=== PATIENT | female | born 2000 ===

== ENCOUNTER 2025-03-02 00:05 | Emergency (ER) | payer BC, SELFPAY ==
[2025-03-02 00:06] VITALS: BP 122/67; PULSE 106; RESP 16; TEMP 36.8; O2SAT 97; BMI 27.1
--- OUTSIDE RECORDS SUMMARY | 2025-03-02 00:45 | XMS_ITS | Patient Health Record ---
Author Organization [facility] Address [address] [place], [place] [id number] Care Team Providers Care Construction Safety Manager Name Role Phone LABORATORIO, [facility] Primary C are Provider [phone] Reason For Referral No Information Social History Sex Assigned At : Social History Observation Description Sex Assigned At Female Social History DAST: Social Info Question Answer Notes Cuestionario: Villanueva usado drogas el ano pasado? No 1 -Villanueva usado medicamentos dis tintos de los necesarios por motivos medicos? No 2 -Abusa de mas de rosaura droga a la vez? No 3 -No puede dejar de usar drogas cuando quiere? No 4 -[place]an[place]va experimentado perdida temporal de la memoria o escenas retrospectivas ena resultado del uso de drogas? No 5 -En ocasiones se siente ma l o culpable por loza uso de drogas? No 6 -Se queja alguna vez loza co nyuge (o padres) por loza implicacion con las drogas? No 7 -[place] descuidado a loza jaswinder debido a loza uso de drogas? No 8 -[place]an[place] participado en activid ades ilegales a fin de obtener drogas? No 9 -Villan[place]va experimentado alguna v ez sintomas de abstinencia(sentirse enfermo)cuando villanueva dejado de consumir drogas? No 10-Villanueva tenido problemas medic os ena resultado de loza uso de drogas(por ejemplo, perdida de memoria, hepatitis, convulsiones, hemorragias)? No Total de yes: 0 Score: Zone of Use: Score: 0 Zone: 1 - Healthy Alguna vez se villanueva inyectado drogas? Nunca Villanueva estado alguna vez en trat amiento por abuso de sustancias? Nunca Accion: None Sexual History: Social Info Question Answer Notes Details of Sexual History Are you sexually active? No How many sexual partners have you had? 1 Drugs/Alcohol: Social Info Question Answer Notes Drugs Have you used drugs other than those for medical reasons in the past 12 months? No Caffeine Intake: 1-2 cups per day Problems Problem Type SNOMED Code ICD Code Onset Dates Problem Status W/U Status Risk Notes Problem Absence of menstruation (52531635) Absence of menstruation (N91.2) Active confirmed Problem Amenorrhea (79213081) Absence of menses due to use of contraceptive (N91.2) Active confirmed Encounters Encounter Location Date Provider Diagnosis [facility] [place] [address] [employer], [place] [id number] 06/04/2024 [facility] Absence of menses due to use of contraceptive N91.2 [facility] [place] [address] [employer] [place], [place] [id number] 11/24/2024 [facility] Absence of menstruation N91.2 [facility] [place] [address] [facility] [place] [id number] 12/01/2024 [facility] Encounter for supervision of normal in multigravida in first trimester Z34.81 Assessments Encounter Date Diagnosis (ICD Code) Assessment Notes Treatment Notes Treatment Clinical Notes Section Notes 06/04/2024 Absence of menses due to use of contraceptive (ICD-10 - N91.2) 11/24/2024 Absence of menstruation (ICD-10 - N91.2) 12/01/2024 Encounter for supervision of normal in multigravida in first trimester (ICD-10 - Z34.81) Plan Of Treatment Pending Test Test Name Order Date CHLAMYDIA BY, PCR 12/01/2024 BMP 12/01/2024 URINALYSIS, AUTO W/SCOPE 12/01/2024 TSH THYROID STIM HORMONE 12/01/2024 TEST HCG QUALI 08/14/2022 TEST HCG QUALI 06/04/2024 TEST HCG QUALI 11/24/2024 CBC AUTO W/AUTO DIFF WBC 12/01/2024 VDRL QUALITATIVE 12/01/2024 HEPATITIS C Antibody (SERUM) (6) 025 BLOOD TYPE + BLOOD GROUP 12/01/2024 CULTURE URINE W/CC/SENS 12/01/2024 HEPATITIS B SURFACE ANTIBODY (HBsAB) (4) 12/01/2024 HEPATITIS B SURFACE Antigen (HBsAg) (5) 12/01/2024 MARLEY TEST INDIRECT QUAL 12/01/2024 HEPATITIS A Antibody (HAAb) TOT (2) 11/05 HEPATITIS A Antibody (HAAb) IgM Antibody (1) 12/01/2024 HEPATITIS B CORE ANTB HBCAB IGG (3) 11/05 VARICELLA-ZOSTER IGG 12/01/2024 SICKLE CELL TEST 12/01/2024 NEISSERIA GONORRHOEAE 12/01/2024 HIV Ag/AB Duo 4th gen 12/01/2024 Insurance Providers Payer Name Payer Address Payer Phone Subscriber Number Group Number Insured Name Patient Relationship to Insured Coverage Start Date Coverage End Date [employer] [address] [address] [place], [place] [address] [id number] ELVER DEL RIO Self - patient is the insured
[2025-03-02 00:46] VITALS: BP 107/70; PULSE 80; TEMP 36.8; O2SAT 100
--- NOTE | 2025-03-02 02:03 | PC.NURSE ---
pt here from [place] visiting, just started to have on and off abd pain, also complain of nausea, saw her OB provider about a week ago.
--- NOTE | 2025-03-02 02:35 | ED.PREGNANCY ---
HPI - General Chief complaint: OB Stated complaint: 5 months , abd tightness, nauseous Time Seen by Provider: 03/02/25 02:33 Source: patient Mode of arrival: ambulatory Limitations: language barrier ([employer] Representative services utilized.) History of Present Illness ED Provider: Fermin MOREL HPI Narrative: The patient is a 24-year-old female currently 18 weeks and 4 days presenting to the ED for evaluation of lower abdominal pain described as a tightness. The patient lives in [place] but is visiting this area for the week, the patient has had a previous ultrasound with documented IUP. The patient reports the pain began between 18:00 and 19:00, patient reports pressure comes in waves but denies any urge to push, denies associated vaginal bleeding, vaginal discharge, passage of fluid, fever, vomiting, diarrhea, or recent trauma. The patient denies any dysuria or hematuria. The patient reports mild nausea which she states has been ongoing since the start of . The patient reports she continues to feel the baby moving well. The patient reports approximately 2-1/2 hours before symptoms began she had spent the majority of the day walking through the mall and at 1 point lifted a gal jug of water up a flight of stairs. The patient denies any exertion just prior to onset of symptoms. Related Data Previous Rx's ?Medication ?Instructions ?Recorded cephalexin 500 mg capsule 500 mg PO TID #21 caps 03/02/25 Allergies Allergy/AdvReac Type Severity Reaction Status Date / Time No Known Allergies Allergy Verified 03/02/25 00:11 Review of Systems Review of Systems: Yes all other systems are reviewed and are negative PMFSH Social History Social History Smoked in Last 30 Days: No Use of substances other than those prescribed or required for medical reasons: No Advance Directives: No Advance Directives Information Provided: No Do you have a plan to hurt others: No Plan Physical Exam Vital Signs: Vital Signs: Last Vital Signs Temp 98.3 F 03/02/25 00:46 Pulse 80 03/02/25 00:46 Resp 16 03/02/25 00:06 BP 107/70 03/02/25 00:46 Pulse Ox 100 03/02/25 00:46 O2 Del Method Room Air 03/02/25 00:46 BMI result Body Mass Index 27.1 CONSTITUTIONAL: The patient appears anxious but otherwise non-toxic, well nourished and in no acute distress. Vital signs as documented. HEAD: Atraumatic, normocephalic. EYES: EOMs grossly intact, pupils equal, conjunctiva clear, no exudate. ENT: Nares patent, no discharge. Airway patent, no audible stridor, visible mucosa is pink and moist without noted lesions. NECK: Trachea is midline, no obvious masses or gross abnormalities. CHEST: Symmetric movement, normal appearance. LUNGS: LS present and CTAB, no w/r/r. Non-labored work of breathing. CARDIAC: Regular Rhythm, S1/S2 appreciated, no murmurs, rubs or gallops. ABDOMEN: Abdomen gravid but otherwise soft and non-tender x4 quadrants, no palpable masses or organomegaly. : Deferred. EXTREMITIES: Normal tone, moves all extremities spontaneously without reported pain. No obvious acute injury or deformity noted. NEURO: Alert and oriented x3, CN II-XII appear grossly intact. Cerebellar Functioning grossly intact. No obvious sensory or motor deficits. Speech clear and appropriate. PSYCH: normal affect, appropriate eye contact, fluid speech, with appropriate response to questioning. No reported suicidality or homicidality. SKIN: Warm, dry, color appropriate, normal turgor. No rashes noted. Medications Administered Discontinued Medications Generic Name Dose Route Start Last Admin Trade Name Conradq PRN Reason Stop Dose Admin Acetaminophen 975 mg 03/02/25 03:16 03/02/25 03:42 Acetaminophen 325 Mg Tablet PO 03/02/25 03:17 975 mg ONCE ONE Administration Sodium Chloride 1,000 mls @ 999 mls/hr 03/02/25 03:30 03/02/25 05:04 Ns IV 03/02/25 04:30 Infused .Q1H1M NANDA Infusion Ondansetron HCl 4 mg 03/02/25 02:30 03/02/25 02:34 Ondansetron Odt 4 Mg Tab.Rapdis TRANSLINGU 03/02/25 02:31 4 mg ONCE ONE Administration Medical Decision Making Medical Decision Making MDM Narrative: 3:08 AM 03/02/2025 (Janiya MOREL): The patient is a 24-year-old female currently 18 weeks and 4 days presenting to the ED for evaluation of lower abdominal pain described as a tightness. The patient lives in [place] but is visiting this area for the week, the patient has had a previous ultrasound with documented IUP. The patient reports the pain began between 18:00 and 19:00, patient reports pressure comes in waves but denies any urge to push, denies associated vaginal bleeding, vaginal discharge, passage of fluid, fever, vomiting, diarrhea, or recent trauma. The patient denies any dysuria or hematuria. The patient reports mild nausea which she states has been ongoing since the start of . The patient reports she continues to feel the baby moving well. The patient reports approximately 2-1/2 hours before symptoms began she had spent the majority of the day walking through the mall and at 1 point lifted a gal jug of water up a flight of stairs. The patient denies any exertion just prior to onset of symptoms. In the ED the patient is anxious, tearful, states she is nervous about the well-being of her baby, but is otherwise nontoxic and in no acute distress. The patient's abdominal exam demonstrates a gravid abdomen, consistent with reported gestational age, without tenderness. Bedside ultrasound shows heart rate of 152 with excellent movement. The patient is markedly reassured following exam and bedside ultrasound. Patient may be suffering from round ligament pain from over exertion, we will treat with Tylenol, IV fluid hydration, and reassess. We will also obtain urinalysis to ensure no bacteriuria in this patient. Pending improvement in patient's symptoms patient will be appropriate for discharge home and instructed to follow up with her OBGYN upon returning to [place] on . 5:21 AM 03/02/2025 (Janiya MOREL): The patient's urinalysis shows large leukocyte esterase with many WBCs and 1+ bacteria. Patient will be treated for asymptomatic bacteriuria in . The patient reports significant improvement in symptoms following IV fluid hydration. Patient will be discharged with supportive care, Keflex for bacteriuria, and instructions to follow up with her OBGYN upon return to [place]. Admission/Observation Consideration of admission/observation: Escalation of care including admission/observation considered Lab Data MDM Lab Attestation statement: I reviewed the patient's lab results. Labs: Lab Results 03/02/25 Range/Units 04:58 Urine Color Yellow Urine Appearance Clear Urine pH 7.0 (5.0-9.0) Ur Specific Potter 1.010 (1.005-1.025) Urine Protein Negative (Neg-Trace) mg/dL Urine Glucose (UA) Negative (Negative) mg/dL Urine Ketones Negative (Negative) mg/dL Urine Blood Negative (Negative) Urine Nitrite Negative (Negative) Ur Leukocyte Esterase Large (3+) H (Negative) Urine RBC 0-2 (0-2) /HPF Urine WBC 21-50 H (0-5) /HPF Ur Squamous Epith Cells 3-5 (0-2) /HPF Urine Bacteria 1+ (None Seen) Hyaline Casts 0-2 (0-2) /LPF Independent Interpretation I performed an independent interpretation of an: Ultrasound Interpretation: Bedside ultrasound demonstrates heart rate of 152, excellent movement throughout exam. Prescription Management I considered prescription management with: Pain Medication and Antibiotic Discharge Plan Discharge Clinical Impression: Abdominal pain in , Bacteriuria during Patient Disposition: Home, Self-Care Instructions: Abdominal Pain in (ED), Urinary Tract Infection in (ED) Additional Instructions: Kin por elegir el [facility] M?dico [place] para loza atenci?n m?dica hoy. Afortunadamente, la ecograf?a de cabecera de hoy demostr? que loza beb? tiene rosaura excelente frecuencia card?clara y buen movimiento. En marichuy momento, no hay indicaci?n de ingreso hospitalario ni de observaci?n continua en urgencias, y es seguro darle de angelica. Rebecca s?ntomas mejoraron despu?s de la hidrataci?n intravenosa; es posible que la deshidrataci?n estuviera causando irritaci?n muscular, lo que result? en espasmos. Adem?s, loza an?lisis de orina mostr? la presencia de bacterias. Incluso sin s?ntomas, la presencia de bacterias en la orina de rosaura cami embarazada se trata ean rosaura infecci?n del tracto urinario. [place] cefalexina 3 veces al d?a yung los pr?ximos 7 d?as. Puede yasmani Tylenol 1000 mg cada 6 horas seg?n sea necesario para cualquier dolor adicional. Mant?ngase kevan hidratada y descanse lo suficiente. Consulte con loza ginec?logo/obstetra y loza m?dico de cabecera para rosaura reevaluaci?n, un manejo adicional de rebecca s?ntomas y atenci?n preventiva continua. Si no tiene un m?dico de cabecera, llame a [facility] al [phone] para asignarle celsa nuevo. Mientras espera la asignaci?n de loza nuevo m?dico de cabecera, puede llamar a nuestra Cl[facility] [place]?n [place] al [phone] para necesidades que no oswald de emergencia. Regrese a urgencias si presenta un cambio repentino o grave en rebecca s?ntomas, fiebre superior a 38 ?C que no mejora con Tylenol o ibuprofeno, v?mitos recurrentes o cualquier otro s?ntoma o inquietud nuevo o que empeore. Thank you for choosing [facility]'s Emergency Department for your care today. Thankfully your bedside ultrasound today demonstrated your baby has an excellent heart rate and good movement. At this time there is no indication for admission to the hospital or continued ED observation, and it is safe to discharge you home. Your symptoms improved following IV fluid hydration, it is possible dehydration was causing irritation of your muscles resulting in spasm. Additionally your urinalysis showed the presence of bacteria. Even without symptoms, any bacteria in urine in a woman is treated as a urinary tract infection. Please take cephalexin 3 times a day for the next 7 days. You may take Tylenol 1000 mg every 6 hours as needed for any additional pain. Please stay well hydrated and get plenty of rest. Please follow up with your COORDINATOR HOTELS and primary care physician for re-evaluation, additional management of your symptoms, and continued preventative care. If you do not have a primary care physician, please call the [facility] at [phone] to establish a new primary care physician. While waiting to establish your new primary care physician, you can call our Walk[facility]in [facility] at [phone] for non-emergency needs. Please return to the emergency department if you develop a severe or sudden change in your symptoms, a fever over 100.4 that does not improve with Tylenol or Ibuprofen, recurrent vomiting, or any other new or worsening symptoms or concerns. Prescriptions: New cephalexin 500 mg capsule 500 mg PO TID Qty: 21 0RF Print Language: Niuean
--- NOTE | 2025-03-02 02:35 | PC.NURSE ---
pt medicated for nausea.
--- NOTE | 2025-03-02 02:58 | PC.NURSE ---
provider went into assess pt.
--- NOTE | 2025-03-02 03:50 | PC.NURSE ---
pt medicated per mar., Iv placed in right hand
[2025-03-02 05:04] LABS: Appearance Urine Clear; Glucose Urine UA Negative (Negative); PH 7.0 (5.0-9.0); Specific Gravity - Urine 1.010 (1.005-1.025); UMIC TRIGGER UACC YES
[2025-03-02 05:09] LABS: UACC Culture Trigger YES
--- NOTE | 2025-03-02 05:38 | PC.NURSE ---
Iv removed, medicated per jul, reviewed discharge instructions with pt. pt verbalized understanding, no sign of distress, pt did have bed side ultra sound by provider.
[2025-03-02 05:53] VITALS: BP 131/65; PULSE 88; RESP 20; TEMP 36.7; O2SAT 98
[2025-03-02 05:54] VITALS: BP 131/65; PULSE 88; RESP 20; TEMP 36.7; O2SAT 98
== END 2025-03-02 05:55 | disposition home or self-care (01) ==
PROVIDERS: Physician Assistant; Emergency Provider Emergency Medicine
DX: O99.612 Diseases of the digestive system complicating pregnancy, second trimester (principal); O28.8 Other abnormal findings on antenatal screening of mother; Z3A.18 18 weeks gestation of pregnancy; R10.9 Unspecified abdominal pain
CPT/HCPCS: 81001; 87086; 96360; 99284; 99285